=== PATIENT | female | born 1985 | race Caucasian/White ===

== ENCOUNTER 2023-11-21 06:58 | Day surgery (SDC) | payer OTHER ==
[2023-11-14 15:27] LABS: BILIRUBIN,URINE NEGATIVE (Neg); CLARITY,URINE CLEAR (Clear); COLOR,URINE YELLOW (Yellow); GLUCOSE, URINE NEGATIVE (Neg); KETONES,URINE NEGATIVE (Neg); LEUKOCYTE ESTERASE ,URINE NEGATIVE (Neg); NITRITES, URINE NEGATIVE (Neg); OCCULT BLOOD,URINE NEGATIVE (Neg); PROTEIN,URINE NEGATIVE (Neg); UROBILINOGEN,URINE 0.2 E.U/dL (0.2-1.0)
[2023-11-14 15:28] LABS: UA COLLECTION TYPE CLN CATCH MIDSTREAM
[2023-11-14 15:30] LABS: BASOPHILS % (AUTO) 0.6 % (0-1); EOSINOPHILS # (AUTO) 0.1 X10'3 (0-0.9); EOSINOPHILS % (AUTO) 1.3 % (0-6); LYMPHOCYTES # (AUTO) 2.6 X10'3 (1.1-4.8); LYMPHOCYTES % (AUTO) 37.9 % (21-51); MEAN CORPUSCULAR HEMOGLOBIN 30.3 PG (27.0-31.0); MEAN CORPUSCULAR HGB CONC 33.6 g/dL (33.0-36.5); MEAN CORPUSCULAR VOLUME 90.1 FL (78-98); MEAN PLATELET VOLUME 6.9 FL (7.4-10.4); MONOCYTES # (AUTO) 0.6 X10'3 (0-0.9); MONOCYTES % (AUTO) 8.2 % (2-12); NEUTROPHILS # (AUTO) 3.6 X10'3 (1.8-7.7); PRE OP HEMOGLOBIN 14.5 g/dL (12.0-16.0); PRE OP PLATELET COUNT 407 X10'3 (140-440); PRE OP WHITE BLOOD COUNT 6.9 10'3 (4.8-10.8); RED BLOOD COUNT 4.78 X10'6 (4.20-5.60); RED CELL DISTRIBUTION WIDTH 12.8 % (11.5-14.5)
[2023-11-14 15:43] LABS: ALBUMIN/GLOBULIN RATIO 0.9 (1.1-1.5); ALKALINE PHOSPHATASE 53 IU/L (46-116); BLOOD UREA NITROGEN 15 MG/DL (7-18); BUN/CREATININE RATIO 16.7 (10.0-20.0); CALCIUM 8.4 MG/DL (8.5-10.1); CHLORIDE 101 MMOL/L (99-107); PRE OP ALT 27 U/L (30-65); PRE OP ANION GAP 9 (8-16); PRE OP AST 17 U/L (10-37); PRE OP BILIRUB, TOTAL 0.4 MG/DL (0.0-1.0); PRE OP GLUCOSE 79 MG/DL (70-104); PRE OP POTASSIUM 3.7 MMOL/L (3.4-5.1); PRE OP SODIUM 138 MMOL/L (135-145); TOTAL CARBON DIOXIDE 28.3 MMOL/L (24-32); TOTAL PROTEIN 8.7 G/DL (6.4-8.2); eGFR 71 ML/MIN
[~2023-11-21] VITALS: Ht 157.5 cm; Wt 71.4 kg
[2023-11-21] VITALS (14 sets, daily range): BP systolic 98–120; BP diastolic 55–79; PULSE 76–93; RESP 13–18; TEMP 99.1; O2SAT 95–100
[~2023-11-21 06:58] MED LIST: ALLERTEC; BERBERINE; CLINDAMYCIN PHOS TOP; L-LYSINE; MAGNESIUM; SUMA25TA35 PO; VITAMIN C; VITAMIN D3; ZINC; [UNRECOGNIZED DRUG - OTHER]
[2023-11-21] MEDS: famotidine 20mg tablet PO ONE (08:05)
[2023-11-21] MEDS: clindamycin-Cleocin 900mg/D5W 50 ML IV ONE (08:06)
[2023-11-21] MEDS: ringers solution, lacted 1,000 ML IV SCH ×2 (08:06→11:56)
[2023-11-21] MEDS ORDERED: cloNIDine hcl/PF 100mcg/ml inj ONE (08:12)
[2023-11-21] MEDS ORDERED: sevoflurane 250ml liquid IH ONE (08:18)
[2023-11-21] MEDS ORDERED: midazolam 1 mg/ML 2ml injection ONE (08:22)
[2023-11-21] MEDS ORDERED: hydrALAZINE 20mg/ml inj. IV PRN (08:45)
[2023-11-21] MEDS ORDERED: labetalol 20mg/4ml (5mg/ml) syringe IV PRN (08:45)
[2023-11-21] MEDS ORDERED: meperidine/PF 25mg/ml syringe IV PRN ×3 (08:45)
[2023-11-21] MEDS ORDERED: morphine 2 MG/ML inj. syringe IV PRN (08:45)
[2023-11-21] MEDS ORDERED: proCHLORperazine 10 MG/2 ml inj IV PRN (08:45)
[2023-11-21] MEDS ORDERED: ondansetron/PF 4mg/2ml inj ONE ×2 (09:06)
[2023-11-21] MEDS ORDERED: fentaNYL /PF 50mcg/ml 5ml ampule ONE (09:06)
[2023-11-21] MEDS ORDERED: dexamethasone sod phosphate 4mg/ml inj. ONE (09:06)
[2023-11-21] MEDS ORDERED: 0.9 % SODIUM CHLORIDE 10 ML VIAL ONE (09:06)
[2023-11-21] MEDS ORDERED: ROPIVAcaine 0.5% (5mg/ml) 30ml vial ONE (09:06)
[2023-11-21] MEDS ORDERED: LIDOcaine 2% (20mg/ml) 5ml vial ONE (09:06)
[2023-11-21] MEDS ORDERED: propofol inj 20 ML IV ONE (09:06)
[2023-11-21] MEDS ORDERED: bacitracin 15gm ointment TP ONE (10:39)
[2023-11-21] MEDS: morphine 4 MG/ML inj SYRINge IV PRN (11:45)
[2023-11-21] MEDS: oxyCODONE/APAP 5-325mg tablet PO ONE (11:55)
[2023-11-21] MEDS: ondansetron/PF 4mg/2ml inj IV PRN (12:04)
== END 2023-11-21 12:37 | disposition home or self-care (01) ==
LOC: PAS 06:58
PROVIDERS: ATTEND Podiatrist Foot & Ankle Surgery
DX: M25.371 Other instability, right ankle (principal); Z79.2 Long term (current) use of antibiotics; Z79.82 Long term (current) use of aspirin; Z79.891 Long term (current) use of opiate analgesic; Z79.899 Other long term (current) drug therapy; Z88.0 Allergy status to penicillin; Z88.5 Allergy status to narcotic agent
CPT/HCPCS: 27695; 27829; 28300; 29895; 36415; 73600; 80053; 81003; 82948; 85025; A6222; C1713; C1776; J0735; J1100; J2250; J2270; J2405; J2704; J2795; J3010; J3490; J7120; Z7506; Z7508; Z7512; A4215; A4618; A6449; A7000